=== PATIENT | female | born 1990 | race Two or more races ===

== ENCOUNTER 2019-03-25 09:20 | Emergency (ER) | payer MEDICAID, OTHER ==
[~2019-03-25] VITALS: Ht 152.4 cm; Wt 58.5 kg
[2019-03-25 09:28] VITALS: BP 121/70
[2019-03-25] MEDS ORDERED: ALBUTEROL SULF 2.5 MG/0.5ML(0.5%) NEB SOLN NEB ONE (11:15)
[2019-03-25] MEDS ORDERED: ACETAMINOPHEN 325 MG TAB PO ONE (11:15)
[2019-03-25] MEDS ORDERED: IPRATROPIUM BROM 0.5 MG/2.5ML INH SOL NEB ONE (11:15)
== END 2019-03-25 11:48 | disposition home or self-care (01) ==
LOC: ER 09:20
DX: O99.512 Diseases of the respiratory system complicating pregnancy, second trimester (principal); O26.892 Other specified pregnancy related conditions, second trimester; J06.9 Acute upper respiratory infection, unspecified; R42 Dizziness and giddiness; R51 Headache; Z3A.28 28 weeks gestation of pregnancy
CPT/HCPCS: 94640; 99283; J7611; J7644

== ENCOUNTER 2023-08-24 11:09 | Emergency (ER) | payer MEDICAID ==
[~2023-08-24] VITALS: Ht 152.4 cm; Wt 61.8 kg
[2023-08-24 11:41] VITALS: BP 134/93; PULSE 85; RESP 20; TEMP 98.2; O2SAT 98
[2023-08-24] MEDS ORDERED: METH-1181 PO (12:41)
[2023-08-24] MEDS ORDERED: IBUP-1454 PO (12:41)
[2023-08-24] MEDS: ACETAMINOPHEN 500 MG TAB PO ONE (12:48)
== END 2023-08-24 12:50 | disposition home or self-care (01) ==
LOC: ER 11:09
DX: S16.1XXA Strain of muscle, fascia and tendon at neck level, initial encounter (principal); S20.211A Contusion of right front wall of thorax, initial encounter; Z79.1 Long term (current) use of non-steroidal anti-inflammatories (NSAID); Z79.899 Other long term (current) drug therapy; V49.9XXA Car occupant (driver) (passenger) injured in unspecified traffic accident, initial encounter; Y93.89 Activity, other specified; Y92.410 Unspecified street and highway as the place of occurrence of the external cause; Y99.8 Other external cause status
CPT/HCPCS: 71046; 72040